=== PATIENT | female | born 1950 | race Caucasian/White ===

== ENCOUNTER 2018-10-31 05:39 | Day surgery (SDC) | payer MEDICARE ==
[~2018-10-31] VITALS: Ht 154.9 cm; Wt 47.0 kg
[2018-10-31 06:21] VITALS: BP 125/86
[2018-10-31] MEDS ORDERED: SODIUM CHLORIDE 0.9% 1,000 ML IV SCH (06:23)
[2018-10-31] MEDS ORDERED: LIDOCAINE-MPF 1%, 5ML ONE (07:55)
[2018-10-31] MEDS ORDERED: MIDAZOLAM 1 MG/ML, 5ML ONE (07:57)
[2018-10-31] MEDS ORDERED: FLUMAZENIL 0.1 MG/1 ML, 5ML ONE (07:57)
[2018-10-31] MEDS ORDERED: FENTANYL PF 100 MCG/2ML ONE (07:57)
[2018-10-31] MEDS ORDERED: NALOXONE 1 MG/ML, 2ML ONE (07:57)
== END 2018-10-31 11:58 | disposition home or self-care (01) ==
LOC: RAD 05:39
PROVIDERS: ATTEND Family Medicine
DX: R91.1 Solitary pulmonary nodule (principal); Z88.0 Allergy status to penicillin; Z88.8 Allergy status to other drugs, medicaments and biological substances
CPT/HCPCS: 32405; 71045; 77012; 88305; J2250; J3010; 88341; 88342; J2310

== ENCOUNTER → 2019-02-13 | Outpatient (CLI) | payer MEDICARE, OTHER ==
[~2019-02-13] MED LIST: OMNIPAQUE 350 MG/ML, 100ML BOTTLE ONE
== END | disposition home or self-care (01) ==
LOC: CFH 09:09
PROVIDERS: ATTEND Family Medicine
DX: R91.8 Other nonspecific abnormal finding of lung field (principal); R91.1 Solitary pulmonary nodule; M47.814 Spondylosis without myelopathy or radiculopathy, thoracic region; M85.88 Other specified disorders of bone density and structure, other site
CPT/HCPCS: 71260; Q9967

== ENCOUNTER 2019-08-10 08:45 | Outpatient (CLI) | payer MEDICARE, OTHER ==
[2019-08-10] MEDS ORDERED: OMNIPAQUE 350 MG/ML, 75ML BOTTLE ONE (09:00)
== END 2019-08-10 23:59 | disposition home or self-care (01) ==
LOC: CFH 08:45
PROVIDERS: ATTEND Internal Medicine
DX: R91.1 Solitary pulmonary nodule (principal)
CPT/HCPCS: 71260; Q9967

== ENCOUNTER → 2019-10-01 | Outpatient (CLI) | payer MEDICARE, OTHER | END | disposition home or self-care (01) | LOC: PETCFH 08:37 | PROVIDERS: ATTEND Internal Medicine | DX: R91.1 Solitary pulmonary nodule (principal); R91.8 Other nonspecific abnormal finding of lung field; C43.59 Malignant melanoma of other part of trunk; I25.10 Atherosclerotic heart disease of native coronary artery without angina pectoris; F17.211 Nicotine dependence, cigarettes, in remission; M13.812 Other specified arthritis, left shoulder; M13.811 Other specified arthritis, right shoulder | CPT/HCPCS: 78816; A9552 ==

== ENCOUNTER → 2020-03-30 | Outpatient (CLI) | payer MEDICARE, OTHER | END | disposition home or self-care (01) | LOC: CFH 08:24 | PROVIDERS: ATTEND Internal Medicine | DX: R91.1 Solitary pulmonary nodule (principal); J84.10 Pulmonary fibrosis, unspecified; J98.4 Other disorders of lung; M51.34 Other intervertebral disc degeneration, thoracic region | CPT/HCPCS: 71250 ==

== ENCOUNTER → 2020-11-08 | Outpatient (CLI) | payer MEDICARE, OTHER | END | disposition home or self-care (01) | LOC: CFH 08:11 | PROVIDERS: ATTEND Family Medicine | DX: Z12.31 Encounter for screening mammogram for malignant neoplasm of breast (principal); M85.88 Other specified disorders of bone density and structure, other site; N95.8 Other specified menopausal and perimenopausal disorders | CPT/HCPCS: 77063; 77067; 77080 ==